=== PATIENT | female | born 1965 | race Caucasian/White ===

== ENCOUNTER → 2018-11-24 | Outpatient (CLI) | payer OTHER | LOC: FIMAGING 16:06 | PROVIDERS: ATTEND Radiology Vascular & Interventional Radiology | PROC: 0G9H3ZZ Drainage of Right Thyroid Gland Lobe, Percutaneous Approach (ICD-10-PCS; principal; 2018-11-24) | DX: E04.1 Nontoxic single thyroid nodule (principal) ==